=== PATIENT | female | born 1940 | race Caucasian/White ===

== ENCOUNTER → 2020-06-06 | Outpatient (CLI) | payer MEDICARE, OTHER ==
--- NOTE | 2020-06-06 18:36 | RAD ---
EXAM: HIP LEFT 2V WITH PELVIS. HISTORY: Left hip pain. COMPARISON: None. FINDINGS: The left femoral head has collapsed with significant volume loss of the superior articular surface. The superior joint space is effaced. These findings are consistent with avascular necrosis without primary or secondary osteoarthritis. The joint spaces and alignment of the right hip are maintained. No fractures are identified. There are moderate to severe degenerative changes of the lower lumbar spine. IMPRESSION: 1. 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 Severe left hip osteoarthritis. Electronically signed by: Warren Davidson MD (06/06/2020 6:33 PM) [facility]
== END ==
LOC: DXRAD 16:38
PROVIDERS: ATTEND Physician Assistant Medical
DX: M16.12 Unilateral primary osteoarthritis, left hip (principal); M47.816 Spondylosis without myelopathy or radiculopathy, lumbar region
CPT/HCPCS: 73502

== ENCOUNTER → 2021-05-12 | Outpatient (CLI) | payer MEDICARE, OTHER ==
--- NOTE | 2021-05-13 07:33 | RAD ---
Bilateral lower extremity arterial duplex ultrasound study without comparison for peripheral vascular disease, hypertension, history of smoking, diabetes. TECHNIQUE AND FINDINGS: Real-time grayscale and color spectral Doppler evaluation of the arteries of lower extremities is performed. There is moderate multifocal calcified atherosclerosis in multiple di stributions. The right common femoral artery, deep femoral artery, femoral artery and popliteal arter ies are patent demonstrating biphasic flow. The proximal posterior tibial artery is occluded, there i s monophasic flow within the distal posterior tibial artery. Peroneal artery is patent and biphasic, and likely surfaces a dominant runoff vessel. The anterior tibial artery is patent and monophasic. Do rsalis pedis artery is patent and biphasic. On the left, once again there is moderate multifocal atherosclerosis with patency of the common femor al, deep femoral, femoral, and popliteal arteries, all of which are biphasic. No definite hemodynamic ally significant stenosis in these distributions. The posterior tibial and peroneal arteries are occl uded. There is patency with biphasic flow in the anterior tibial artery, consistent with single vesse l runoff. Dorsalis pedis artery is patent as well but monophasic, perhaps due to distal anterior tibi al artery stenosis. IMPRESSION: 1. Moderate multifocal atherosclerosis in virtually all distributions, with no definite hemodynamical ly significant stenosis in the femoropopliteal arteries. 2. Occlusive runoff disease bilaterally, likely with dominant runoff via the peroneal artery on the r ight, and single vessel runoff via the anterior tibial artery and the left. This patient could likely benefit from angiography and attempted endovascular reconstruction by an en dovascular specialist. If so desired, we would be happy to see him in our IR clinic in this regard. R eferral can be made by faxing written order to [phone]. Electronically signed by: Dick Stone MD (05/13/2021 7:30 AM) [id number]
== END ==
LOC: US 16:18
PROVIDERS: ATTEND Podiatrist Foot & Ankle Surgery
DX: I70.203 Unspecified atherosclerosis of native arteries of extremities, bilateral legs (principal); I10 Essential (primary) hypertension; E11.9 Type 2 diabetes mellitus without complications
CPT/HCPCS: 93925

== ENCOUNTER → 2021-08-19 | Outpatient (CLI) | payer MEDICARE, OTHER ==
--- NOTE | 2021-08-19 16:00 | RAD ---
EXAM: Chest, 2 views. HISTORY: Cough. COMPARISON: None. FINDINGS: 2 views of the chest are obtained. There is left infrahilar infiltrate or scarring. This is superimposed on chronic appearing coarse increased interstitial markings. There is no pleural effusi on or pneumothorax. The heart is normal in size. IMPRESSION: Suspected left infrahilar infiltrate or scarring superimposed on chronic interstitial nick nges. Electronically signed by: Alyse Abdi MD (08/19/2021 3:57 PM) [id number]
== END ==
LOC: RAD 15:22
PROVIDERS: ATTEND Internal Medicine Cardiovascular Disease
DX: R05.9 Cough, unspecified (principal)
CPT/HCPCS: 71046